=== PATIENT | male | born 1990 | race Caucasian/White ===

== ENCOUNTER → 2019-01-13 14:23 | Outpatient (CLI) | payer OTHER, SELFPAY ==
[2019-01-12 10:46] VITALS: BMI 21.2
== END ==
PROVIDERS: Family Provider Family Medicine; PCP Family Medicine; Referring Provider Physician Assistant; Visit Provider Physician Assistant
DX: J02.9 Acute pharyngitis, unspecified (principal)
CPT/HCPCS: 87081

== ENCOUNTER 2021-10-21 15:15 | Outpatient (CLI) | payer OTHER, SELFPAY ==
--- NOTE | 2021-10-21 15:16 | MRI_ITS ---
STUDY: MR MRCP WITHOUT CONTRAST REASON FOR EXAM: Male, 31 years old. pancreatic divisum recurrent pancreatitis TECHNIQUE: Standard MRCP technique was utilized. 3-D postprocessing images were reviewed. COMPARISON: None. FINDINGS: Gall Bladder: Normal with no distention or demonstrated fixed intraluminal filling defect. Cystic duct: Normal with no demonstrated fixed filling defect. Intrahepatic ducts: Normal visualized intrahepatic ducts with no demonstrated fixed filling defect, dilation or stricture. Common hepatic duct: Normal with no demonstrated fixed filling defect, dilation or stricture. Common bile duct: Normal with no demonstrated fixed filling defect, dilation or stricture. Pancreatic duct: The pancreatic duct crosses the common bile duct to drain into the minor papilla. MRI/MRCP Abdomen without Contrast IMPRESSION: Pancreas divisum. Electronically Signed: Abhilash Landin MD at 17:14 [facility] ,
== END 2021-10-21 23:59 | disposition home or self-care (01) ==
PROVIDERS: PCP Family Medicine; Visit Provider Internal Medicine Gastroenterology
DX: Q45.3 Other congenital malformations of pancreas and pancreatic duct (principal)
CPT/HCPCS: 74181

== ENCOUNTER 2021-11-16 15:15 | Outpatient (CLI) | payer OTHER, SELFPAY ==
[2021-11-16 16:08] LABS: Amylase 86 U/L (25-115); CRP 3.84 mg/L (0.0-3.0); LDH 249 U/L (87-241); Lipase 100 U/L (73-393)
[2021-11-16 16:16] LABS: Erythrocyte Sedimentation Rate 12 mm/hr (0-20)
[2021-11-18 15:08] LABS: Anti-Centromere B Ab <0.2 AI (0.0-0.9); Anti-Chromatin <0.2 AI (0.0-0.9); Anti-Jo <0.2 AI (0.0-0.9); Anti-Scleroderma-70 AB <0.2 AI (0.0-0.9); RNP Ab <0.2 AI (0.0-0.9); SJOGREN'S Anti-SS-A test < 0.2 AI (0.0-0.9); SJOGREN'S Anti-SS-B test < 0.2 AI (0.0-0.9); Smith Ab <0.2 AI (0.0-0.9)
[2021-11-19 13:47] LABS: Anti-dsDNA Ab <1 IU/mL (0-9)
[2021-11-23 22:06] LABS: IgG, Quant 1094 mg/dL (603-1613); Immunoglobulin A 268 mg/dL (90-386); Immunoglobulin E 41 IU/mL (6-495); Immunoglobulin G, Subclass 1 654 mg/dL (248-810); Immunoglobulin G, Subclass 2 249 mg/dL (130-555); Immunoglobulin G, Subclass 3 40 mg/dL (15-102); Immunoglobulin G, Subclass 4 62 mg/dL (2-96)
[2021-11-24 10:45] LABS: Immunoglobulin M 67 mg/dL (20-172)
== END 2021-11-16 23:59 | disposition home or self-care (01) ==
LOC: LAB 15:17
PROVIDERS: PCP Family Medicine; Visit Provider Internal Medicine Gastroenterology
DX: Q45.3 Other congenital malformations of pancreas and pancreatic duct (principal)
CPT/HCPCS: 36415; 82150; 82784; 82785; 82787; 83615; 83690; 85652; 86140; 86225; 86235

== ENCOUNTER → 2022-01-20 | Outpatient (CLI) | payer OTHER, SELFPAY ==
[2022-01-20 17:32] LABS: Cholesterol 188 mg/dL (200); Glucose 85 mg/dL (74-106); High Density Lipoprotein 42 mg/dL; Triglycerides 61 mg/dL; Very Low Density Lipoprotein 12 mg/dL (5-40)
== END | disposition home or self-care (01) ==
LOC: LAB 15:31
PROVIDERS: PCP Family Medicine; Visit Provider Family Medicine
DX: Z13.220 Encounter for screening for lipoid disorders (principal); Z13.1 Encounter for screening for diabetes mellitus
CPT/HCPCS: 36415; 80061; 82947

== ENCOUNTER → 2022-08-31 | Outpatient (CLI) | payer OTHER, SELFPAY ==
[2022-08-31 16:30] LABS: LDH 209 U/L (87-241)
== END | disposition home or self-care (01) ==
PROVIDERS: PCP Family Medicine; Visit Provider Internal Medicine Gastroenterology
DX: Q45.3 Other congenital malformations of pancreas and pancreatic duct (principal)
CPT/HCPCS: 36415; 83615; 86140

== ENCOUNTER → 2022-09-06 | Outpatient (CLI) | payer OTHER, SELFPAY ==
[2022-09-06 16:32] LABS: Absolute Lymphocyte Count 1.98 X10^3/uL (0.83-4.51); Absolute Neutrophil Count 3.3 X10^3/uL (2.0-7.7); Basophil# 0.04 X10^3/uL; Basophil% 0.6 % (0-1); Eosinophil# 0.43 X10^3/uL; Eosinophils% 6.9 % (0-5); Hematocrit 44.7 % (40-54); Hemoglobin 14.4 g/dL (13.0-16.5); Lymphocyte # 1.98 X10^3/ul (0.83-4.51); Lymphocyte % 31.7 % (19-41); Mean Corp Hgb Conc 32.2 g/dL (32-36); Mean Corpuscular Hgb 27.7 pg (27.0-32.0); Mean Corpuscular Volume 86.1 fL (80-94); Mean Platelet Vol. 10.1 fl (6.2-12.0); Monocyte# 0.44 X10^3/uL; Monocyte% 7.1 % (0-10); NRBC Flagged by Analyzer 0 % (0-5); Neutrophil # 3.33 X10^3/uL (2.7-7.7); Neutrophil % 53.4 % (47-70); Platelet Count 239 K/mm3 (150-450); RBC Distribution Width SD 44.4 fl (35.1-43.9); Red Blood Count 5.19 M/mm3 (4.6-6.2); White Blood Count 6.2 K/mm3 (4.4-11.0)
[2022-09-06 16:36] LABS: Erythrocyte Sedimentation Rate 10 mm/hr (0-20)
[2022-09-06 17:04] LABS: AST(SGOT) 22 U/L (15-37); Alanine Aminotransfer ALT/SGPT 21 U/L (16-61); Albumin, Serum 3.9 g/dL (3.2-5.0); Alkaline Phosphatase 91 U/L (45-117); Anion Gap 5 (5-15); BUN 12 mg/dL (7-18); BUN/Creat Ratio 14.2 RATIO (10-20); Calcium,Total 8.9 mg/dL (8.5-10.1); Chloride 108 mmol/L (98-107); Creatinine, Serum 0.84 mg/dL (0.70-1.30); EST Glomerular Filtration Rate 111 mL/min (>60); Est Glom Filt Rate - Afr Amer 135 mL/min (>60); Globulin 3.8 g/dL (2.2-4.2); Glucose 96 mg/dL (74-106); LDH 197 U/L (87-241); Protein, Total 7.7 g/dL (6.4-8.2); Sodium Level 140 mmol/L (136-145)
[2022-09-08 13:08] LABS: Anti-Centromere B Ab <0.2 AI (0.0-0.9); Anti-Chromatin <0.2 AI (0.0-0.9); Anti-Jo <0.2 AI (0.0-0.9); Anti-Scleroderma-70 AB <0.2 AI (0.0-0.9); RNP Ab <0.2 AI (0.0-0.9); SJOGREN'S Anti-SS-A test < 0.2 AI (0.0-0.9); SJOGREN'S Anti-SS-B test < 0.2 AI (0.0-0.9); Smith Ab <0.2 AI (0.0-0.9)
[2022-09-08 15:08] LABS: Endomysial Antibody IgA Negative (Negative)
[2022-09-08 17:28] LABS: Immunoglobulin A 265 mg/dL (90-386); t-Transglutaminase IgA <2 U/mL (0-3)
[2022-09-08 17:36] LABS: Anti-dsDNA Ab <1 IU/mL (0-9)
[2022-09-10 10:09] LABS: Albumin 4.1 g/dL (2.9-4.4); Alpha-1-Globulins 0.2 g/dL (0.0-0.4); Alpha-2-Globulins 0.7 g/dL (0.4-1.0); Cytoplasmic Ab (C-ANCA) <1:20 titer (Neg:<1:20); Immunoglobulin A 268 mg/dL (90-386); Immunoglobulin E 65 IU/mL (6-495); Immunoglobulin G 1128 mg/dL (603-1613); Immunoglobulin M 83 mg/dL (20-172)
[2022-09-10 11:25] LABS: Perinuclear Ab (P-ANCA) <1:20 titer (Neg:<1:20)
== END | disposition home or self-care (01) ==
PROVIDERS: PCP Family Medicine; Visit Provider Internal Medicine Gastroenterology
DX: K52.9 Noninfective gastroenteritis and colitis, unspecified (principal)
CPT/HCPCS: 36415; 80053; 82784; 82785; 83516; 83615; 84165; 85025; 85652; 86140; 86225; 86235; 86255; 86256; 86334

== ENCOUNTER → 2023-01-23 | Outpatient (CLI) | payer OTHER, SELFPAY ==
[2023-01-23 12:58] LABS: Cholesterol 159 mg/dL (200); Glucose 106 mg/dL (74-106); High Density Lipoprotein 37 mg/dL; Triglycerides 79 mg/dL; Very Low Density Lipoprotein 16 mg/dL (5-40)
== END | disposition home or self-care (01) ==
LOC: BFHLAB 09:00
PROVIDERS: PCP Nurse Practitioner Family; Referring Provider Nurse Practitioner Family; Visit Provider Nurse Practitioner Family
DX: Z00.00 Encounter for general adult medical examination without abnormal findings (principal)
CPT/HCPCS: 36415; 80061; 82947

== ENCOUNTER 2023-09-14 06:11 | Day surgery (SDC) | payer OTHER, SELFPAY ==
[2023-09-14 06:30] VITALS: BP 113/87; PULSE 116; RESP 16; TEMP 36.6; O2SAT 100; BMI 26.5
[2023-09-14] MEDS: Lactated Ringers 1,000 ML 15 ML IV (06:41)
--- NOTE | 2023-09-14 07:15 | EGD_PTH ---
PATHOLOGY RESULTS PATIENT: FATOUMATA NAGEL LOC: EN U#:[id number] AGE/SX: 32/M ROOM: RE09/14/[address]: Dr. Chidi Fernández DO : 1990 BED: DIS: 09/14/2023 SPEC #: [id number] RECD: 09/14/23 10:52 STATUS: RONNY ELVIA #: [id number] LUIS: 09/14/23 07:[address]: Chidi Fernández DEPT: SURGICAL PATHOLOGY RECD BY: Reema Jo ENTERED: 09/14/23 11:29 SP TYPE: EGD BIOPSY OTHR DR: Luarie Primary Care Phys Tissues: Duodenum, NOS Gastric mucous membrane Ileum, NOS Cecum, NOS COLON BIOPSY Procedures: Surgery Specimen Level IV HEADER OPERATION: Colonoscopy, EGD, biopsy PRE-OP DIAGNOSIS: Frequent stools, pancreatic divisum TISSUE SUBMITTED: A - Duodenum biopsy, B - Gastric antrum biopsy for histo and H. pylori, C - Terminal ileum biopsy, D - Cecum biopsy, E - Random colonic biopsy MICROSCOPIC DIAGNOSIS A. Duodenum, biopsy: No pathologic change. B. Gastric antrum, biopsy: Chronic gastritis. See comment. C. Terminal ileum, biopsy: Benign lymphoid aggregates. See comment. D. Cecum, biopsy: No pathologic change. E. Colon, random biopsy: No pathologic change. AM:adrien 09/15/2023 COMMENT B. The results of immunohistochemistry for Helicobacter pylori will be reported separately ([id number]). C. Immunohistochemistry ([id number]) supports the above diagnosis. MICROSCOPIC DESCRIPTION Slides are reviewed. GROSS DESCRIPTION A - Received in fixative is one container labeled with the patient's name and designated duodenum biopsy. The specimen consists of multiple irregular fragments of light wills soft tissue that in aggregate measure 1.0 x 0.3 x 0.1 cm. The specimen is totally submitted in one cassette. B - Received in fixative is one container labeled with the patient's name and designated gastric antrum biopsy. The specimen consists of multiple irregular fragments of light wills soft tissue that in aggregate measure 0.9 x 0.5 x 0.1 cm. The specimen is totally submitted in one cassette. C - Received in fixative is one container labeled with the patient's name and designated terminal ileum biopsy. The specimen consists of multiple irregular fragments of light wills soft tissue that in aggregate measure 1.5 x 0.5 x 0.1 cm. The specimen is totally submitted in one cassette. D - Received in fixative is one container labeled with the patient's name and designated cecum biopsy. The specimen consists of multiple irregular fragments of light wills soft tissue that in aggregate measure 0.8 x 0.3 x 0.1 cm. The specimen is totally submitted in one cassette. E - Received in fixative is one container labeled with the patient's name and designated random colonic biopsy. The specimen consists of multiple irregular fragments of light wills soft tissue that in aggregate measure 1.5 x 0.5 x 0.1 cm. The specimen is totally submitted in one cassette. / SJ:rg 09/14/2023 TC:3 CPT: 37952 x5
--- NOTE | 2023-09-14 07:15 | IMM_PTH ---
PATHOLOGY RESULTS PATIENT: FATOUMATA NAGEL LOC: EN U#:[id number] AGE/SX: 32/M ROOM: RE09/14/[address]: Dr. Chidi Fernández DO : 1990 BED: DIS: 09/14/2023 SPEC #: [id number] RECD: 09/14/23 13:27 STATUS: RONNY REQ #: [id number] LUIS: 09/14/23 07:[address]: Chidi Fernández DEPT: IMMUNOHISTOCHEMISTRY RECD BY: Ashli Casillas ENTERED: 09/14/23 13:28 SP TYPE: IMMUNO OTHR DR: Laurie Primary Care Phys Tissues: Stomach, NOS Ileum, NOS Procedures: H Pylori (initial) BCL-2 (add) BCL-6 (add) CD20 (add) CD3 (add) CD45 (add) CD5 (add) CD79A (add) Pankeratin (add) KI-67 (initial) PHYSICIAN & INSTITUTION [address] [address] SPECIMEN INFORMATION: Tissue Source: B - Gastric antrum, C - Terminal ileum Clinical Info: Frequent stools, pancreatic divisum Specimen Number: [id number] B & C CPT code: 46743 x2, 61520 x8 METHODOLOGY: Deparaffinized sections of prefer/formalin-fixed tissue or PAP/DQ stained slides are incubated with monoclonal/polyclonal antibodies/oligonucleotide probes. Localization is made via biotin free immunoperoxidase method. Appropriate controls are performed and reacted as expected. Results on target cell population are indicated in the following table: RESULTS: ANTIBODY / CLONE RESULT Block B H Pylori (polyclonal) negative Block C AE1-3 (AE1/AE3/PCK26) negative CD3 (PS1) positive CD5 (SP10) positive CD20 (L26) positive CD45 (RP2/18) positive CD79a (11E3) positive BCL-2 (bcl-2/100/D5) negative BCL-6 (HP122X/A8) negative Ki-67 (30-9) positive These tests were developed and their performance characteristics determined by [facility]. They may not have been cleared or approved by the U.S. Food and Drug Administration. The FDA has determined that such clearance or approval is not necessary. The above immunohistochemical/dualISH markers are ordered and reviewed by the Pathologist. INTERPRETATION: B. Gastric antrum, biopsy: Negative for Helicobacter pylori organisms. C. Terminal ileum, biopsy: No evidence of lymphoproliferative disorder. AM:adrien 09/18/2023
--- NOTE | 2023-09-14 07:29 | HP.PCM_ITS ---
History and Physical Date of Admission: 09/14/23 FATOUMATA NAGEL, is a 32 M who presents to the office today for follow up. Prior workup:? CT abd/pel 08.05.14?mural thickening involving terminal ileum consistent with terminal ileitis consistent with Crohn?s disease. Small Bowel Xray 08.03.15?Unremarkable.? Colonoscopy 08.11.15?with Dr. Carney performed without abnormal results. Biopsies negative for Crohn?s disease.? ? *[facility] established 10.04.21 to establish care for Crohn?s disease, however this diagnosis may be incorrect. Diagnosis made in 2013 by an ED doctor. Previously established with Dr. Carney with no maintenance medication, just PRN for flare. Fatoumata reports history of capsule endoscopy without signs of IBD.?MRCP 10.21.21?without dilation, stricture noted. Pancreatic duct crosses CBD to drain into minor papilla. Diagnosis, pancreatic divisum.?Biochemical workup ..?ESR, amylase, lipase, IGG subclasses, NOAH, KATHY comp all without pertinent abnormality.? LDH H249, CRP H3.84.? OV 4..22 with continued symptoms of tenesmus, abdominal pain and frequent loose BM. MRCP notes pancreatic divisum,?start Creon.? OV 8..22 with continued symptoms of tenesmus, abdominal pain and frequent loose BM, though severity is improved since starting Creon, though has trouble remembering to take it. There was a period where he was without Creon r/t supply issue and he was very ill.?Biochemical 1.18.23?LDH, CRP WNL? OV 1..23 abdominal discomfort still present but continues to improve in regard to severity. Working at weight loss and feel abdominal exercises aggravate the pain. Taking one Creon with each meal.?Start cholestyramine.? Biochemical?CBC, ESR, CMP, KATHY comp, ANCA, celiac, IBD profile without pertinent abnormality.? CRP H12.30? Stool studies calprotectin, lactoferrin not performed? OV 4..23 stools continue to present with tenesmus, abdominal, frequent loose stools. Creon was ineffective and stopped. Cholestyramine used since prescribed and has not made a change in symptoms. OV 10.9.23 Pt reports no change in sx. Did take Duloxetine for 2 months and did not notice any changes. Continues to have abdominal pain throughout the day. Cannot determine triggers. Stools are loose when he has abdominal pain. No changes in appetite. ROS Const Constitutional: No fatigue ENT ENT: No difficulty swallowing Gastro GI: Positive for abdominal pain, bloating, constipation, diarrhea, excessive flatus and nausea/dyspepsia; No belching, change in bowel habits, change in stool character, coffee ground emesis, cramping, heartburn, difficulty swallowing, feeling full early, incontinent of stools, Vomiting blood/hematemesis, Blood in stool, loose stools, Black,tarry stools, pain with swallowing, vomiting or other Musc Musculoskeletal: Positive for back pain; No joint pain Skin Skin: No yellowing of the eye or itchy eyes Psych Psychiatric: No anxiety and No depression Endo Endocrine: No fatigue Aller/Imm Allergy/Immunologic: No itchy eyes Armin/Lymp Hematologic/Lymphatic: No easy bleeding or easy bruising Exam Const General: cooperative and healthy appearing [facility] Head: normocephalic and atraumatic Ears: hearing grossly normal bilaterally Face and sinus: face symmetric Eyes General: appearance normal, both eyes and all related structures Visual Parr: normal visual parr by confrontation Alignment and Position: alignment normal Periorbital: periorbital findings normal Eyelids: eyelids normal Conjunctivae: conjunctival abnormality right conjunctival injection diffuse Pupils: PERRL Resp Effort & Inspection: normal respiratory effort Auscultation: Bilateral: Clear to Auscultation Skin General: no rashes or lesions noted Psych Appearance: grossly normal Quality Reporting Tobacco Screening ([facility] 138) Smoking Status: Never smoker Assessment and Plan Assessment and Plan (1) Frequent stools: Status: Chronic Plan: He does not have a pre-existing diagnosis of inflammatory bowel disease in particular Crohn's disease which was diagnosed via visual optical colonoscopy. Biopsies did not show Crohn's disease patient also said that he had genetic testing which was [employer] testing and that did not show Crohn's disease. Also he said he had a capsule endoscopy which did not show Crohn's disease. I think his inflammatory markers a CRP and mildly elevated LDH was secondary to inflammation either in his duodenum or in and around his pancreas. 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 At first the cholestyramine had helped him but then it stopped working. He can have 5-6 watery bowel movements per day that is always initiated by pain and goes away after he has a bowel movement. He does find that THC is only thing that stops him from having pain and diarrhea. I get a capsule endoscopy study. (2) Pancreatic divisum: Status: Chronic Plan: We are treating him for the diagnosis of abdominal pain and diarrhea secondary to possible intermittent inflammation associated with his pancreatic divisum. He has had idiopathic pancreatitis which we have identified that is possibly being secondary to his pancreatic divisum. Having abdominal pain and diarrhea despite taking pancreatic enzymes. (3) we will get an repeat upper endoscopy to evaluate his stomach because the capsule endoscopy does not see the stomach very well. We will also look at his duodenum and see if we can get biopsies of the inflammation that was seen on his capsule endoscopy. I have examined the patient and the H&P has been reviewed. There are no clinical changes since date of exam.
[2023-09-14 08:09] VITALS: BP 113/87; BP 137/123; PULSE 100; RESP 18; TEMP 36.6; O2SAT 95
--- NOTE | 2023-09-14 08:12 | OP.CCLET_ITS ---
09/14/2023 Spencer Crain Re : Upper GI endoscopy procedure for José Luis Mac Dear Vijay This procedure was performed on September. My impressions and recommendations are as follows: Impressions : - Normal esophagus. - Chronic gastritis. Biopsied. - Non-bleeding duodenal ulcers with no stigmata of bleeding. Biopsied. Recommendations : - Discharge patient to home. - Resume previous diet. - Continue present medications. My findings are described in the full procedure note, which is enclosed. If I can be of further assistance, please feel free to contact me at . Sincerely, Chidi Fernández, 09/14/2023 8:12:30 AM This report has been signed electronically.
--- NOTE | 2023-09-14 08:12 | OP.EGD_ITS ---
Patient Name: José Luis Mac Procedure Date: 09/14/2023 7:31 AM Date of : 1990 Age: 32 Procedure: Upper GI endoscopy Indications: Epigastric abdominal pain Providers: Chidi Fernández DO Referring MD: Chidi Fernández DO Medicines: Monitored Anesthesia Care Patient Profile: This is a 32 year old male. Refer to note in patient chart for documentation of history and physical. Patient has symptoms of chronic abdominal cramping, chronic global abdominal pain and chronic dyspepsia. Complications: No immediate complications. Procedure: Pre-Anesthesia Assessment: - Prior to the procedure, a History and Physical was performed, and patient medications and allergies were reviewed. The patient is competent. The risks and benefits of the procedure and the sedation options and risks were discussed with the patient. All questions were answered and informed consent was obtained. Patient identification and proposed procedure were verified by the physician in the pre-procedure area. Mental Status Examination: alert and oriented. Airway Examination: normal oropharyngeal airway and neck mobility. Respiratory Examination: clear to auscultation. CV Examination: normal. Prophylactic Antibiotics: The patient does not require prophylactic antibiotics. Prior Anticoagulants: The patient has taken no anticoagulant or antiplatelet agents. ASA Grade Assessment: II - A patient with mild systemic disease. After reviewing the risks and benefits, the patient was deemed in satisfactory condition to undergo the procedure. The anesthesia plan was to use monitored anesthesia care (MAC). Immediately prior to administration of medications, the patient was re-assessed for adequacy to receive sedatives. The heart rate, respiratory rate, oxygen saturations, blood pressure, adequacy of pulmonary ventilation, and response to care were monitored throughout the procedure. The physical status of the patient was re-assessed after the procedure. After obtaining informed consent, the endoscope was passed under direct vision. Throughout the procedure, the patient's blood pressure, pulse, and oxygen saturations were monitored continuously. The colonoscope was introduced through the mouth, and advanced to the second part of duodenum. The upper GI endoscopy was accomplished without difficulty. The patient tolerated the procedure well. Scope In: 7:43:40 AM Scope Out: 7:48:21 AM Total Procedure Duration Time 0 hours 4 minutes 41 seconds Findings: The examined esophagus was normal. Patchy inflammation characterized by erosions and erythema was found in the gastric body. Biopsies were taken with a cold forceps for histology. Biopsies were taken with a cold forceps for Helicobacter pylori testing. Verification of patient identification for the specimen was done. Estimated blood loss was minimal. Few non-bleeding superficial duodenal ulcers with no stigmata of bleeding were found in the duodenal bulb. The largest lesion was 1 mm in largest dimension. Biopsies were taken with a cold forceps for histology. Verification of patient identification for the specimen was done. Estimated blood loss was minimal. Impression: - Normal esophagus. - Chronic gastritis. Biopsied. - Non-bleeding duodenal ulcers with no stigmata of bleeding. Biopsied. Recommendation: - Discharge patient to home. - Resume previous diet. - Continue present medications. Procedure Code(s): --- Professional --- 36882, Esophagogastroduodenoscopy, flexible, transoral; with biopsy, single or multiple CPT copyright 2021 [employer]. All rights reserved. The codes documented in this report are preliminary and upon industrial engineering professor review may be revised to meet current compliance requirements. Chidi Fernández DO 09/14/2023 8:12:30 AM This report has been signed electronically. Number of Addenda: 0 Note Initiated On: 09/14/2023 7:31 AM
[2023-09-14 08:14] VITALS: BP 113/87; BP 95/74; PULSE 100; RESP 18; O2SAT 94
--- NOTE | 2023-09-14 08:16 | OP.COLON_ITS ---
Patient Name: José Luis Mac Procedure Date: 09/14/2023 7:48 AM Date of : 1990 Age: 32 Procedure: Colonoscopy Indications: Suspected Crohn's disease of the small bowel Providers: Chidi Fernández DO Referring MD: Chidi Fernández DO Medicines: Monitored Anesthesia Care Patient Profile: This is a 32 year old male. Refer to note in patient chart for documentation of history and physical. Patient has symptoms of chronic abdominal cramping, chronic global abdominal pain and chronic dyspepsia. Last Colonoscopy: 1 year ago. Complications: No immediate complications. Procedure: Pre-Anesthesia Assessment: - Prior to the procedure, a History and Physical was performed, and patient medications and allergies were reviewed. The patient is competent. The risks and benefits of the procedure and the sedation options and risks were discussed with the patient. All questions were answered and informed consent was obtained. Patient identification and proposed procedure were verified by the physician in the pre-procedure area. Mental Status Examination: alert and oriented. Airway Examination: normal oropharyngeal airway and neck mobility. Respiratory Examination: clear to auscultation. CV Examination: normal. Prophylactic Antibiotics: The patient does not require prophylactic antibiotics. Prior Anticoagulants: The patient has taken no anticoagulant or antiplatelet agents. ASA Grade Assessment: II - A patient with mild systemic disease. After reviewing the risks and benefits, the patient was deemed in satisfactory condition to undergo the procedure. The anesthesia plan was to use monitored anesthesia care (MAC). Immediately prior to administration of medications, the patient was re-assessed for adequacy to receive sedatives. The heart rate, respiratory rate, oxygen saturations, blood pressure, adequacy of pulmonary ventilation, and response to care were monitored throughout the procedure. The physical status of the patient was re-assessed after the procedure. After I obtained informed consent, the scope was passed under direct vision. Throughout the procedure, the patient's blood pressure, pulse, and oxygen saturations were monitored continuously. The colonoscope was introduced through the anus and advanced to 10 cm into the ileum. The colonoscopy was performed without difficulty. The patient tolerated the procedure well. The quality of the bowel preparation was adequate. The terminal ileum, ileocecal valve, appendiceal orifice, and rectum were photographed. Scope In: 7:50:59 AM Scope Withdrawal Time 0 hours 6 minutes 34 seconds Scope Out: 8:03:06 AM Total Procedure Duration Time 0 hours 12 minutes 7 seconds Findings: The perianal and digital rectal examinations were normal. An area of mildly congested mucosa was found in the sigmoid colon, in the transverse colon and in the cecum. Biopsies were taken with a cold forceps for histology. Verification of patient identification for the specimen was done. Estimated blood loss was minimal. Patchy mild inflammation characterized by erosions, erythema and friability was found in the distal ileum and in the terminal ileum. Biopsies were taken with a cold forceps for histology. Verification of patient identification for the specimen was done. Estimated blood loss was minimal. Impression: - Congested mucosa in the sigmoid colon, in the transverse colon and in the cecum. Biopsied. - Mild inflammation was found in the ileum secondary to ileitis. Biopsied. Recommendation: - Discharge patient to home. - Resume previous diet. - Continue present medications. - Await pathology results. - Repeat colonoscopy for surveillance based on pathology results. Procedure Code(s): --- Professional --- 63145, Colonoscopy, flexible; with biopsy, single or multiple CPT copyright 2021 [employer]. All rights reserved. The codes documented in this report are preliminary and upon laundry attendant review may be revised to meet current compliance requirements. Chidi Fernández DO 09/14/2023 8:16:11 AM This report has been signed electronically. Number of Addenda: 0 Note Initiated On: 09/14/2023 7:48 AM
--- NOTE | 2023-09-14 08:16 | OP.CCLET_ITS ---
09/14/2023 Spencer Crain Re : Colonoscopy procedure for José Luis Mac Dear Vijay This procedure was performed on September. My impressions and recommendations are as follows: Impressions : - Congested mucosa in the sigmoid colon, in the transverse colon and in the cecum. Biopsied. - Mild inflammation was found in the ileum secondary to ileitis. Biopsied. Recommendations : - Discharge patient to home. - Resume previous diet. - Continue present medications. - Await pathology results. - Repeat colonoscopy for surveillance based on pathology results. My findings are described in the full procedure note, which is enclosed. If I can be of further assistance, please feel free to contact me at . Sincerely, Chidi Fernández, 09/14/2023 8:16:11 AM This report has been signed electronically.
[2023-09-14 08:19] VITALS: BP 113/87; BP 95/71; PULSE 75; RESP 16; TEMP 36.6; O2SAT 96
[2023-09-14 08:41] VITALS: BP 113/87
== END 2023-09-14 08:47 | disposition home or self-care (01) ==
LOC: EN 06:12 → AC 06:16
PROVIDERS: Visit Provider Internal Medicine Gastroenterology
PROC: 0DJD8ZZ Inspection of Lower Intestinal Tract, Via Natural or Artificial Opening Endoscopic (ICD-10-PCS; CPT 45378; principal; 2023-09-14 07:10)
DX: K29.50 Unspecified chronic gastritis without bleeding (principal); K26.9 Duodenal ulcer, unspecified as acute or chronic, without hemorrhage or perforation; Q45.3 Other congenital malformations of pancreas and pancreatic duct; K21.9 Gastro-esophageal reflux disease without esophagitis; Z87.19 Personal history of other diseases of the digestive system
CPT/HCPCS: 45380; 43239; 88305; 88341; 88342; J7120; J2405

== ENCOUNTER → 2023-11-08 | Outpatient (CLI) | payer OTHER, SELFPAY ==
[2023-11-08 15:41] LABS: Absolute Lymphocyte Count 2.11 X10^3/uL (0.83-4.51); Absolute Neutrophil Count 4.6 X10^3/uL (2.0-7.7); Basophil# 0.05 X10^3/uL; Basophil% 0.7 % (0-1); Eosinophil# 0.18 X10^3/uL; Eosinophils% 2.4 % (0-5); Hematocrit 42.9 % (40-54); Hemoglobin 13.9 g/dL (13.0-16.5); Lymphocyte # 2.11 X10^3/ul (0.83-4.51); Lymphocyte % 28.6 % (19-41); Mean Corp Hgb Conc 32.4 g/dL (32-36); Mean Corpuscular Hgb 28.1 pg (27.0-32.0); Mean Corpuscular Volume 86.8 fL (80-94); Monocyte# 0.44 X10^3/uL; NRBC Flagged by Analyzer 0 % (0-5); Neutrophil # 4.59 X10^3/uL (2.7-7.7); Platelet Count 260 K/mm3 (150-450); RBC Distribution Width CV 14.2 % (11.6-14.6); RBC Distribution Width SD 45.5 fl (35.1-43.9); Red Blood Count 4.94 M/mm3 (4.6-6.2); White Blood Count 7.4 K/mm3 (4.4-11.0)
[2023-11-08 16:24] LABS: AST(SGOT) 18 U/L (15-37); Alanine Aminotransfer ALT/SGPT 14 U/L (16-61); Albumin, Serum 3.8 g/dL (3.2-5.0); Alkaline Phosphatase 77 U/L (45-117); Amylase 125 U/L (25-115); Anion Gap 4 (5-15); BUN 12 mg/dL (7-18); BUN/Creat Ratio 13.3 RATIO (10-20); Calcium,Total 8.9 mg/dL (8.5-10.1); Chloride 108 mmol/L (98-107); EST Glomerular Filtration Rate 103 mL/min (>60); Est Glom Filt Rate - Afr Amer 124 mL/min (>60); Glucose 98 mg/dL (74-106); Lipase 48 U/L (13-75); Protein, Total 7.8 g/dL (6.4-8.2); Sodium Level 140 mmol/L (136-145)
== END | disposition home or self-care (01) ==
LOC: LAB 15:11
PROVIDERS: Referring Provider Internal Medicine Gastroenterology; Visit Provider Internal Medicine Gastroenterology
DX: K52.9 Noninfective gastroenteritis and colitis, unspecified (principal)
CPT/HCPCS: 36415; 80053; 82150; 83690; 85025

== ENCOUNTER → 2023-11-21 | Outpatient (CLI) | payer OTHER, SELFPAY ==
[2023-11-21 16:25] LABS: Erythrocyte Sedimentation Rate 7 mm/hr (0-20)
[2023-11-21 17:06] LABS: ALB/GLOB Ratio 1.1 RATIO (0.9-2.4); AST(SGOT) 14 U/L (15-37); Alanine Aminotransfer ALT/SGPT 15 U/L (16-61); Albumin, Serum 3.7 g/dL (3.2-5.0); Alkaline Phosphatase 73 U/L (45-117); Amylase 85 U/L (25-115); Anion Gap 3 (5-15); BUN 12 mg/dL (7-18); BUN/Creat Ratio 12.8 RATIO (10-20); CRP < 2.90 mg/L (0.0-3.0); Calcium,Total 8.7 mg/dL (8.5-10.1); Chloride 107 mmol/L (98-107); Creatinine, Serum 0.94 mg/dL (0.70-1.30); EST Glomerular Filtration Rate 97 mL/min (>60); Est Glom Filt Rate - Afr Amer 118 mL/min (>60); Globulin 3.4 g/dL (2.2-4.2); Glucose 106 mg/dL (74-106); Lipase 35 U/L (13-75); Potassium 3.7 mmol/L (3.5-5.1); Protein, Total 7.1 g/dL (6.4-8.2); Sodium Level 140 mmol/L (136-145)
== END | disposition home or self-care (01) ==
LOC: LAB 15:14
PROVIDERS: PCP Nurse Practitioner Family; Referring Provider Internal Medicine Gastroenterology; Visit Provider Internal Medicine Gastroenterology
DX: K50.90 Crohn's disease, unspecified, without complications (principal)
CPT/HCPCS: 36415; 80053; 82150; 83690; 85652; 86140

== ENCOUNTER → 2024-01-19 | Outpatient (CLI) | payer OTHER, SELFPAY ==
[2024-01-19 09:22] LABS: Cholesterol 189 mg/dL (200); Glucose 123 mg/dL (74-106); High Density Lipoprotein 44 mg/dL; Triglycerides 44 mg/dL; Very Low Density Lipoprotein 9 mg/dL (5-40)
== END | disposition home or self-care (01) ==
LOC: LAB 08:04
PROVIDERS: PCP Nurse Practitioner Family; Referring Provider Nurse Practitioner Family; Visit Provider Nurse Practitioner Family
DX: Z00.00 Encounter for general adult medical examination without abnormal findings (principal)
CPT/HCPCS: 36415; 80061; 82947

== ENCOUNTER → 2024-06-20 | Outpatient (CLI) | payer OTHER, SELFPAY ==
[2024-06-20 16:13] LABS: Absolute Neutrophil Count 3.7 X10^3/uL (2.0-7.7); Basophil# 0.05 X10^3/uL; Basophil% 0.9 % (0-1); Eosinophil# 0.17 X10^3/uL; Hematocrit 44.2 % (40-54); Hemoglobin 14.6 g/dL (13.0-16.5); Lymphocyte % 23.1 % (19-41); Mean Corpuscular Volume 90.9 fL (80-94); Mean Platelet Vol. 9.1 fl (6.2-12.0); Monocyte# 0.41 X10^3/uL; Monocyte% 7.3 % (0-10); NRBC Flagged by Analyzer 0 % (0-5); Neutrophil # 3.68 X10^3/uL (2.7-7.7); Neutrophil % 65.3 % (47-70); Platelet Count 227 K/mm3 (150-450); RBC Distribution Width CV 14.2 % (11.6-14.6); RBC Distribution Width SD 47.4 fl (35.1-43.9); Red Blood Count 4.86 M/mm3 (4.6-6.2); White Blood Count 5.6 K/mm3 (4.4-11.0)
[2024-06-20 16:43] LABS: ALB/GLOB Ratio 1.2 RATIO (0.9-2.4); AST(SGOT) 35 U/L (15-37); Alanine Aminotransfer ALT/SGPT 30 U/L (16-61); Albumin, Serum 3.9 g/dL (3.2-5.0); Alkaline Phosphatase 69 U/L (45-117); Amylase 83 U/L (25-115); Anion Gap 3 (5-15); BUN 10 mg/dL (7-18); BUN/Creat Ratio 11.8 RATIO (10-20); CRP < 2.90 mg/L (0.0-3.0); Calcium,Total 9.2 mg/dL (8.5-10.1); Chloride 109 mmol/L (98-107); Creatinine, Serum 0.85 mg/dL (0.70-1.30); EST Glomerular Filtration Rate 110 mL/min (>60); Est Glom Filt Rate - Afr Amer 133 mL/min (>60); Globulin 3.3 g/dL (2.2-4.2); Glucose 99 mg/dL (74-106); Lipase 34 U/L (13-75); Potassium 3.8 mmol/L (3.5-5.1); Protein, Total 7.2 g/dL (6.4-8.2); Sodium Level 141 mmol/L (136-145)
[2024-06-20 17:29] LABS: Erythrocyte Sedimentation Rate 8 mm/hr (0-20)
== END | disposition home or self-care (01) ==
LOC: LAB 15:13
PROVIDERS: PCP Nurse Practitioner Family; Referring Provider Internal Medicine Gastroenterology; Visit Provider Internal Medicine Gastroenterology
DX: K50.90 Crohn's disease, unspecified, without complications (principal)
CPT/HCPCS: 36415; 80053; 82150; 83690; 85025; 85652; 86140

== ENCOUNTER → 2024-06-27 | Outpatient (CLI) | payer OTHER, SELFPAY ==
[2024-06-27 15:52] LABS: Absolute Lymphocyte Count 1.36 X10^3/uL (0.83-4.51); Absolute Neutrophil Count 2.8 X10^3/uL (2.0-7.7); Basophil# 0.05 X10^3/uL; Eosinophil# 0.22 X10^3/uL; Eosinophils% 4.6 % (0-5); Hematocrit 44.1 % (40-54); Hemoglobin 14.5 g/dL (13.0-16.5); Lymphocyte # 1.36 X10^3/ul (0.83-4.51); Lymphocyte % 28.4 % (19-41); Mean Corp Hgb Conc 32.9 g/dL (32-36); Mean Corpuscular Hgb 30.2 pg (27.0-32.0); Mean Corpuscular Volume 91.9 fL (80-94); Mean Platelet Vol. 8.8 fl (6.2-12.0); Monocyte# 0.36 X10^3/uL; Monocyte% 7.5 % (0-10); NRBC Flagged by Analyzer 0 % (0-5); Neutrophil # 2.78 X10^3/uL (2.7-7.7); Neutrophil % 58.1 % (47-70); Platelet Count 245 K/mm3 (150-450); RBC Distribution Width CV 14.4 % (11.6-14.6); RBC Distribution Width SD 48.5 fl (35.1-43.9); White Blood Count 4.8 K/mm3 (4.4-11.0)
[2024-06-27 16:05] LABS: Erythrocyte Sedimentation Rate 3 mm/hr (0-20)
[2024-06-27 17:28] LABS: ALB/GLOB Ratio 1.1 RATIO (0.9-2.4); AST(SGOT) 26 U/L (15-37); Alanine Aminotransfer ALT/SGPT 22 U/L (16-61); Alkaline Phosphatase 71 U/L (45-117); Amylase 94 U/L (25-115); Anion Gap 7 (5-15); BUN 11 mg/dL (7-18); BUN/Creat Ratio 14.7 RATIO (10-20); Chloride 107 mmol/L (98-107); Creatinine, Serum 0.75 mg/dL (0.70-1.30); EST Glomerular Filtration Rate 127 mL/min (>60); Est Glom Filt Rate - Afr Amer 153 mL/min (>60); Globulin 3.6 g/dL (2.2-4.2); Glucose 91 mg/dL (74-106); Lipase 33 U/L (13-75); Potassium 4.2 mmol/L (3.5-5.1); Protein, Total 7.6 g/dL (6.4-8.2); Sodium Level 141 mmol/L (136-145)
== END | disposition home or self-care (01) ==
LOC: LAB 15:12
PROVIDERS: PCP Nurse Practitioner Family; Referring Provider Internal Medicine Gastroenterology; Visit Provider Internal Medicine Gastroenterology
DX: K50.90 Crohn's disease, unspecified, without complications (principal)
CPT/HCPCS: 36415; 80053; 82150; 83690; 85025; 85652; 86140

== ENCOUNTER → 2024-10-09 | Outpatient (CLI) | payer OTHER, SELFPAY ==
--- NOTE | 2024-10-09 09:56 | MRI_ITS ---
EXAM: MRI enterography without and with intravenous contrast. CLINICAL HISTORY: Crohn's disease, without complications. History of Crohn's disease. Abdominal pain. COMPARISON: Noncontrast MRI abdomen/MRCP 10/21/2021 TECHNIQUE: Multiplanar, multisequence MRI images of the abdomen/pelvis were obtained without and with intravenous contrast. 17 cc Clariscan IV contrast was administered. FINDINGS: The included osseous structures show no specific abnormality. Some sequences are suboptimal due to motion artifact. The included lower lungs grossly clear. Heart is not enlarged. No sizable pericardial effusion. Moderate fluid signal in the stomach. No filling defects in the gallbladder or abnormal dilation of the biliary tree. There are 2 T2 hyperintense structures in the right hepatic lobe on image 8 of the coronal SSFSE sequence, similar to minimally larger compared to 10/21/2021, likely small cysts or hemangiomas. The lack of significant interval change in nearly 3 years is most compatible with benign etiologies. The adrenal glands, spleen, pancreas, and kidneys show no specific abnormality. No abnormally dilated bowel segments. No abdominal/pelvic adenopathy or ascites. Normal caliber abdominal aorta. No focal abnormality of the urinary bladder. No gross inflammatory changes in the abdomen/pelvis. MRI/Enterography Abd/Pel IMPRESSION: Some sequences are suboptimal due to motion artifact. No definite acute findin gs in the abdomen/pelvis. No gross evidence of active inflammatory bowel disease. A few T2 hyperintense lesions in the medial right hepatic lobe, measuring up to 15 mm, similar to minimally larger compared to 10/21/21. These are favored to represent small cysts or hemangiomas. The lack of significant interval change in nearly 3 years is most compatible with a benign finding. [facility]
[2024-10-09 10:32] VITALS: BP 139/78; PULSE 71; RESP 18; TEMP 36.4; O2SAT 100; BMI 27.2
[2024-10-09] MEDS: Glucagon 1 MG/ML Syringe IV (12:32)
[2024-10-09 13:08] VITALS: BP 119/92; PULSE 95; RESP 18; TEMP 36.6; O2SAT 100
== END | disposition home or self-care (01) ==
PROVIDERS: PCP Nurse Practitioner Family; Referring Provider Internal Medicine Gastroenterology; Visit Provider Internal Medicine Gastroenterology
DX: K50.90 Crohn's disease, unspecified, without complications (principal)
CPT/HCPCS: 74183; 96374; A9575; J1610

== ENCOUNTER → 2024-12-23 | Outpatient (CLI) | payer OTHER, SELFPAY ==
[2024-12-23 09:04] LABS: Absolute Lymphocyte Count 0.93 X10^3/uL (0.83-4.51); Absolute Neutrophil Count 2.6 X10^3/uL (2.0-7.7); Basophil# 0.06 X10^3/uL; Basophil% 1.4 % (0-1); Eosinophil# 0.27 X10^3/uL; Eosinophils% 6.4 % (0-5); Lymphocyte # 0.93 X10^3/ul (0.83-4.51); Lymphocyte % 22.1 % (19-41); Mean Corp Hgb Conc 33.3 g/dL (32-36); Mean Corpuscular Hgb 29.9 pg (27.0-32.0); Mean Corpuscular Volume 89.8 fL (80-94); Mean Platelet Vol. 9.1 fl (6.2-12.0); Monocyte# 0.31 X10^3/uL; Monocyte% 7.4 % (0-10); NRBC Flagged by Analyzer 0 % (0-5); Neutrophil # 2.62 X10^3/uL (2.7-7.7); Neutrophil % 62.2 % (47-70); Platelet Count 231 K/mm3 (150-450); RBC Distribution Width CV 15.3 % (11.6-14.6); RBC Distribution Width SD 50.1 fl (35.1-43.9); Red Blood Count 5.01 M/mm3 (4.6-6.2); White Blood Count 4.2 K/mm3 (4.4-11.0)
[2024-12-23 09:53] LABS: ALB/GLOB Ratio 1.6 RATIO (0.9-2.4); AST(SGOT) 27 U/L (<=37); Alanine Aminotransfer ALT/SGPT 10 U/L (<=46); Albumin, Serum 4.4 g/dL (3.5-5.0); Alkaline Phosphatase 78 U/L (40-129); Anion Gap 18 (5-15); BUN 12 mg/dL (4-19); BUN/Creat Ratio 15.1 RATIO (10-20); Calcium,Total 9.1 mg/dL (7.6-11.0); Carbon Dioxide 22.1 mmol/L (21.0-32.0); Chloride 103 mmol/L (98-108); Cholesterol 175 mg/dL (<=200); Creatinine, Serum 0.78 mg/dL (0.70-1.20); EST Glomerular Filtration Rate 119 (>60); Globulin 2.8 g/dL (2.2-4.2); Glucose 90 mg/dL (70-99); High Density Lipoprotein 50 mg/dL; Low Density Lipoprotein Calc. 115 mg/dL; Potassium 4.1 mmol/L (3.3-5.1); Protein, Total 7.3 g/dL (5.9-8.4); Sodium Level 144 mmol/L (133-145); Total Bilirubin 0.69 mg/dL (0.00-1.30); Triglycerides 52 mg/dL; Very Low Density Lipoprotein 10 mg/dL (5-40); cholesterol:hdl ratio screen 3.51
== END | disposition home or self-care (01) ==
LOC: LAB 07:49
PROVIDERS: PCP Nurse Practitioner Family; Referring Provider Nurse Practitioner Family; Visit Provider Nurse Practitioner Family
DX: Z00.01 Encounter for general adult medical examination with abnormal findings (principal)
CPT/HCPCS: 36415; 80053; 80061; 85025

== ENCOUNTER → 2025-01-27 | Outpatient (CLI) | payer OTHER, SELFPAY ==
[2025-01-27 17:14] LABS: Erythrocyte Sedimentation Rate 10 mm/hr (0-20)
[2025-01-27 17:21] LABS: CRP < 3.00 mg/L (0.0-3.0)
[2025-01-29 08:09] LABS: HEPATITIS B SURFACE AG Negative (Negative); Hep C Antibodies Non Reactive (Non Reactive); Hepatitis A IgM Antibody Negative (Negative); Hepatitis B Core AB IgM Negative (Negative); QNTFERON TB Mitogen Value > 10.00 IU/mL (.); QNTFERON TB Nil Value 0.01 IU/mL (.); QNTFERON TB1+ Ag Value 0.02 IU/mL (.); QNTFERON TB2+ Ag Value 0.02 IU/mL (.); QNTIFERON TB Positive Criteria Negative (Negative)
== END | disposition home or self-care (01) ==
LOC: LAB 15:15
PROVIDERS: PCP Nurse Practitioner Family; Referring Provider Internal Medicine Gastroenterology; Visit Provider Internal Medicine Gastroenterology
DX: K50.90 Crohn's disease, unspecified, without complications (principal)
CPT/HCPCS: 36415; 80074; 85652; 86140; 86480

== ENCOUNTER → 2025-01-29 | Outpatient (CLI) | payer OTHER, SELFPAY ==
[2025-01-29 12:51] LABS: Erythrocyte Sedimentation Rate 9 mm/hr (0-20)
[2025-01-29 13:13] LABS: CRP < 3.00 mg/L (0.0-3.0); Rheumatoid Factor < 10.0 IU/mL (<15)
[2025-01-30 09:08] LABS: ANTINUCLEAR ANTIBODIES DIRECT Negative (Negative)
[2025-01-30 13:08] LABS: CCP IgG Antibodies 5 units (0-19)
== END | disposition home or self-care (01) ==
LOC: BFHLAB 09:22
PROVIDERS: PCP Nurse Practitioner Family; Visit Provider Nurse Practitioner Family
DX: M25.50 Pain in unspecified joint (principal)
CPT/HCPCS: 36415; 85652; 86038; 86140; 86200; 86431

== ENCOUNTER → 2025-05-19 | Outpatient (CLI) | payer OTHER, SELFPAY ==
[2025-05-19 16:54] LABS: AST(SGOT) 22 U/L (<=37); Alanine Aminotransfer ALT/SGPT 10 U/L (<=46); Albumin, Serum 4.5 g/dL (3.5-5.0); Alkaline Phosphatase 72 U/L (40-129); Amylase 124 U/L (28-100); Anion Gap 10 (5-15); BUN 13 mg/dL (4-19); BUN/Creat Ratio 18.3 RATIO (10-20); Calcium,Total 9.1 mg/dL (7.6-11.0); Carbon Dioxide 24.9 mmol/L (21.0-32.0); Chloride 106 mmol/L (98-108); Globulin 2.7 g/dL (2.2-4.2); Glucose 93 mg/dL (70-99); Lipase 45 U/L (13-75); Potassium 4.1 mmol/L (3.3-5.1)
[2025-05-19 17:01] LABS: Hematocrit 41.0 % (40-54); Hemoglobin 14.2 g/dL (13.0-16.5); Immature Granulocytes Count 0.010 X10^3/uL (0.0-0.0); Mean Corp Hgb Conc 34.6 g/dL (32-36); Mean Corpuscular Volume 87.6 fL (80-94); Mean Platelet Vol. 9.4 fl (6.2-12.0); NRBC Flagged by Analyzer 0 % (0-5); Platelet Count 232 K/mm3 (150-450); RBC Distribution Width CV 15.1 % (11.6-14.6); RBC Distribution Width SD 48.3 fl (35.1-43.9); Red Blood Count 4.68 M/mm3 (4.6-6.2); White Blood Count 4.7 K/mm3 (4.4-11.0)
[2025-05-24 19:08] LABS: CRP, High Sensitivity 4.26 mg/L (0.00-3.00); Egg, Whole <0.10 kU/L (Class 0); Mussels <0.10 kU/L (Class 0)
== END | disposition home or self-care (01) ==
PROVIDERS: PCP Nurse Practitioner Family; Referring Provider Internal Medicine Gastroenterology; Visit Provider Internal Medicine Gastroenterology
DX: K50.90 Crohn's disease, unspecified, without complications (principal)
CPT/HCPCS: 36415; 80053; 82150; 83690; 85025; 85652; 86003; 86005; 86141